=== PATIENT | female | born 1935 | race Caucasian/White ===

== ENCOUNTER 2016-12-27 11:57 | Day surgery (SDC) | payer MEDICARE, OTHER ==
[2016-12-24 11:12] VITALS: BMI 26.6
[~2016-12-27 11:57] MED LIST: DEXAMETHASONE SOD PHOSPHATE 10 MG/ML 1 ML VIAL IV ONE; HYDROmorphone 1 MG/ML 1 ML SYRINGE IVP PRN; LACTATED RINGERS 1,000 ML IV SCH; ONDANSETRON 4 MG/2 ML VIAL IVP ONE; Pre Op ABX Message 1 EACH MISC MISCELLANE ONE
[2016-12-27 12:56] VITALS: RESP 16; TEMP 98.4
[2016-12-27] MEDS ORDERED: LIDOCAINE 1% 20 ML VIAL (10MG/ML) FOR IV START INTRADERMA ONE (13:04)
[2016-12-27] MEDS ORDERED: DEXAMETHASONE SOD PHOS (MDV) 100 MG/10 ML VIAL IV ONE (13:09)
[2016-12-27] MEDS ORDERED: ONDANSETRON 4 MG/2 ML VIAL IVP ONE (13:10)
[2016-12-27] MEDS ORDERED: PROPOFOL 10 MG/ML 20 ML VIAL IV ONE (14:11)
[2016-12-27] MEDS ORDERED: fentaNYL (PF) 50 MCG/ML 2 ML AMP ONE (14:11)
[2016-12-27] MEDS ORDERED: MIDAZOLAM 2 MG/2 ML VIAL ONE (14:11)
[2016-12-27] MEDS ORDERED: BUPIVACAINE (PF) 0.5% 30 ML VIAL MISCELLANE ONE (14:19)
[2016-12-27] MEDS ORDERED: LIDOCAINE 2% (PF) 20 MG/ML 10ML SQ ONE (14:19)
[2016-12-27 15:08] VITALS: BP 150/90; PULSE 76
--- NOTE | 2017-01-12 10:25 | OP ---
DATE OF SERVICE: SURGEON: JAZZY CORONADO DO RELIGIOUS EDUCATION COORDINATOR: PREOPERATIVE DIAGNOSIS: Dupuytren's contracture right hand and little finger. POSTOPERATIVE DIAGNOSIS: Dupuytren's contracture right hand and little finger. OPERATION: 1. Excision of Dupuytren's tissue, right hand and right little finger. 2. Neurolysis digital nerves to the right finger. ANESTHESIA: ESTIMATED BLOOD LOSS: SPECIMENS REMOVED: COMPLICATIONS: OPERATIVE FINDINGS: INDICATIONS: An 81-year-old has had progressive Dupuytren's with a significant PIP contracture of the right little finger. Subsequent to the excision of the tissue, I was able to achieve near full passive range of motion. After I neurolyzed the digital nerves of the little finger, the neurovascular bundles were intact at the completion of the procedure. DESCRIPTION OF PROCEDURE: This 81-year-old woman was taken to the operative suite and anesthesia was provided by Department of Anesthesia. Her hand was prepped and draped in the usual manner. It was elevated, exsanguinated and cuff was inflated to 250 mmHg. A zigzag incision was created in the palm and extended into the little finger. Skin flaps were created, held retracted with skin hooks and the procedure was done under 4.5 loupe magnification. The Dupuytren's tissue was identified proximally and traced in a proximal to distal direction. This was done while keeping the neurovascular bundles in view and gently retracted them out of harm's way. The digital nerves to the little finger were intimately adherent and encased within the Dupuytren's tissue necessitating a neurolysis to free them from the diseased tissue. Subsequent to the excision of the tissue, a gentle manipulation was performed of the little finger and as stated above, near full extension was acquired. The wound was thoroughly irrigated. Tourniquet was released. Hemostasis acquired with pressure and electrocautery. Skin was closed with 5-0 nylon suture leaving some open areas for drainage. Soft, bulky dressing was applied and the patient was taken to the recovery room in satisfactory condition.
== END 2016-12-27 16:22 | disposition home or self-care (01) ==
LOC: OR 11:57
PROVIDERS: ATTEND Orthopaedic Surgery Hand Surgery
DX: M72.0 Palmar fascial fibromatosis [Dupuytren] (principal); M19.042 Primary osteoarthritis, left hand; M19.041 Primary osteoarthritis, right hand; I10 Essential (primary) hypertension; I20.9 Angina pectoris, unspecified; K21.9 Gastro-esophageal reflux disease without esophagitis; I26.99 Other pulmonary embolism without acute cor pulmonale; Z79.899 Other long term (current) drug therapy; Z88.1 Allergy status to other antibiotic agents; Z88.3 Allergy status to other anti-infective agents; Z88.0 Allergy status to penicillin; Z88.2 Allergy status to sulfonamides; Z88.8 Allergy status to other drugs, medicaments and biological substances; Z91.09 Other allergy status, other than to drugs and biological substances
CPT/HCPCS: 88304; 26040; 64704; J2250; J2001; J2405; J3010; J1100; J2704